=== PATIENT | female | born 1975 | race Caucasian/White ===

== ENCOUNTER 2019-09-22 23:17 | Emergency (ER) | payer BC, SELFPAY ==
--- NOTE | ~2019-09-22 | CT_ITS ---
EXAMINATION: CT brain wo con INDICATION: Head injury COMPARISON: None TECHNIQUE: Standard unenhanced head CT. The dose-length product (DLP) was 605.33 mGy-cm. The mA was a djusted according to patient size. Iterative reconstruction technique was employed. FINDINGS: A small hematoma is noted in the left frontal scalp. There is no intracranial hemorrhage, a cute infarction, or abnormal mass lesion. The ventricles are normal. There is no abnormal mass effect or midline shift. The morales-white matter differentiation is normal. The basal cisterns are patent. Th e orbits are normal. The paranasal sinuses, mastoids and calvarium are normal. IMPRESSION: 1. No acute intracranial abnormality. Reviewed, dictated and finalized at location A. ICIAN ALLERGIST IMMUNOLOGIST
--- NOTE | ~2019-09-22 | XR_ITS ---
EXAMINATION: XR forearm RT 2V INDICATION: Pain after fall TECHNIQUE: Two views of the right forearm are obtained. COMPARISON: None available FINDINGS: There is no acute fracture, dislocation, or subluxation. Mild deformity of the distal ulna and proximal radius are suggestive of prior fracture. The bones, soft tissues, and joint spaces other estrada normal. IMPRESSION: 1. No acute osseous abnormality. Reviewed, dictated and finalized at location A. CONTROL PRODUCT LIABILITY DIRECTOR
--- NOTE | ~2019-09-22 | XR_ITS ---
EXAMINATION: XR elbow RT min 3V INDICATION: Right elbow pain TECHNIQUE: Four views of the right elbow were obtained. COMPARISON: None available FINDINGS: There is a small triangular heterotopic ossification projecting between the radial head and ulna on the oblique views. There is no elbow joint effusion. Bone alignment is normal. IMPRESSION: 1. Heterotopic ossification in the elbow joint without joint effusion or other findings to suggest ac upper mattaponi fracture. Finding could reflect prior trauma or degenerative change. Acute fracture considered le ss likely. Reviewed, dictated and finalized at location A. ERY RN IMPRESSION: 1. Heterotopic ossification in the elbow joint without joint effusion or other findings to suggest acute fracture. Finding could reflect prior trauma or degen erative change. Acute fracture considered less likely.
--- NOTE | ~2019-09-22 | XR_ITS ---
EXAMINATION: XR elbow LT min 3V DATE: 09/22/2019 23:46 INDICATION: Left elbow pain after fall TECHNIQUE: Anteroposterior, two oblique and lateral views of the left elbow were obtained. COMPARISON: 07/10/2014 FINDINGS: Alignment is normal. No fracture or joint effusion. Joint spaces are normal. Soft tissues a re unremarkable. IMPRESSION: 1. No acute osseous abnormality. Reviewed, dictated and finalized at location A. ENGINE OPERATOR
--- NOTE | ~2019-09-22 | XR_ITS ---
EXAMINATION: XR chest 2V DATE: 09/22/2019 23:46 INDICATION: Pain after fall TECHNIQUE: PA and lateral views of the chest are obtained. COMPARISON: None available FINDINGS: The lungs are free of acute opacities. There is no pleural effusion or pneumothorax. The ca rdiomediastinal silhouette is normal. There is mild thoracic spondylosis. IMPRESSION: 1. No acute cardiopulmonary abnormality. Reviewed, dictated and finalized at location A. TH INFORMATION MANAGEMENT DIRECTOR
[2019-09-22 23:18] VITALS: BP 161/62; PULSE 82; RESP 20; TEMP 36.2; O2SAT 100
--- NOTE | 2019-09-22 23:29 | ED.FALL ---
HPI - Fall General Chief Complaint: Fall Stated Complaint: FELL DOWN STAIRS Time Seen by Provider: 09/22/19 23:28 Source: patient Mode of arrival: ambulatory Limitations: no limitations History of Present Illness HPI Narrative: A 43 y/o female presents to the ED with c/o fall. Pt states that tonight she was cleaning her house when she tripped and fell down 12-15 stairs. She reports frontal HI, left elbow pain, and right forearm pain, but denies LOC and back pain. Pt is not currently on blood thinners. She has no other complaints at this time. complaint: fall Onset (ago): hour(s) (Today) Fall from: down stairs (#) (12-15) Place fall occurred: home Loss of consciousness: none Context: tripped/slipped Location of injury: head (Frontal) Location of injury - extremities: Left: elbow and Right: forearm Associated symptoms (after fall): other (Frontal HI, left elbow pain, right forearm pain) Related Data Home Medications Medication Instructions Recorded Confirmed fluoxetine 20 mg capsule 20 mg PO DAILY 06/16/19 Allergies Allergy/AdvReac Type Severity Reaction Status Date / Time No Known Allergies Allergy Verified 09/22/19 23:23 Review of Systems Review of Systems: All systems reviewed & are unremarkable except as noted in HPI and below Musculoskeletal: Musculoskeletal: Denies back pain and Reports arthralgias (Left elbow, right forearm) Neurologic: Reports other (Reports: frontal HI; Denies: LOC) [facility] Past Medical History Medical History Essential (primary) hypertension Fatigue Hyperlipidemia Sleep apnea in adult Surgical History Surgical History No pertinent past surgical history Family History Family History Sibling Patient's sister is in good health Father No family history of cardiovascular disease, Onset Age: 44 Patient's father is Mother Hypertension Family history of malignant neoplasm of breast in first degree relative Social History Social History Smoking status: Never smoker Second hand tobacco smoke exposure: No Smoking end date: 08/02/06 Alcohol intake: never Gender identity (if verbalized by the patient): Female Exam Narrative: Exam Narrative: APPEARANCE: Well appearing, no apparent distress, well-nourished. HEENT: normocephalic mild swelling ecchymosis over left superior forehead. TMs clear bilaterally. Oral mucosa moist. No tenderness over bilateral zygomatic arch. Full range of motion of jaw without pain. EYES: PERRL NECK: Supple. No midline tenderness to palpation. Full range of motion without pain RESPIRATORY: No respiratory distress. Clear to auscultation bilaterally CARDIOVASCULAR: Regular rate and rhythm without murmurs rubs or gallops. ABDOMINAL: Soft, nontender, nondistended, no rebound or guarding MUSCULOSKELETAl: Moves all extremities. No tenderness to palpation of bilateral lower extremities. No clubbing cyanosis or edema right upper extremity tender over the lateral forearm with mild swelling and ecchymosis, no tenderness over the elbow or wrist with full range of motion of both without pain, tender palpation over the left lateral elbow, no swelling or ecchymosis, full range of motion left elbow without pain, no tenderness of the bilateral wrists or shoulders, bilateral radial pulse 2+, neurovascular intact Back: No midline thoracic or lumbar tenderness to palpation NEURO: Awake and alert ?3. Follows commands. Speech normal. No focal deficits. SKIN:: Warm, dry. Normal Color Course Course Emergency Course: Discussed with patient results of workup and diagnosis. Discussed need for follow-up with primary care, proper use of medication, and reasons to return to the emergency department. Patient understands and agrees to current treatment plan Vital Signs Vit
[2019-09-23] MEDS: ACETAMINOPHEN 500 MG TABLET 1000 MG PO (00:10)
[2019-09-23 01:18] VITALS: BP 149/61; PULSE 81; RESP 18; O2SAT 97
== END 2019-09-23 01:20 | disposition home or self-care (01) ==
PROVIDERS: Emergency Provider Emergency Medicine; PCP Internal Medicine
DX: S00.83XA Contusion of other part of head, initial encounter (principal); S50.11XA Contusion of right forearm, initial encounter; S50.02XA Contusion of left elbow, initial encounter; I10 Essential (primary) hypertension; E78.5 Hyperlipidemia, unspecified; R06.81 Apnea, not elsewhere classified; W10.9XXA Fall (on) (from) unspecified stairs and steps, initial encounter
CPT/HCPCS: 70450; 71046; 73080; 73090; 99284; A9270; L0140

== ENCOUNTER 2020-08-23 14:47 | Outpatient (CLI) | payer BC, SELFPAY ==
--- NOTE | 2020-08-23 14:50 | ECG_ITS ---
Measurements Intervals [place] Rate: 66 P: 33 VA: 170 QRS: 0 QRSD: 110 T: 50 QT: 388 QTc: 409 Interpretive Statements SINUS RHYTHM DELAYED PRECORDIAL R/S TRANSITION MINIMAL Q WAVES- HIGH LATERAL LEADS BORDERLINE ECG Electronically Signed On 08-23-2020 15:00:55 FAMILY PROGRAM SPECIALIST by Nirmal Joseph D.O.
== END 2020-08-23 14:48 | disposition home or self-care (01) ==
LOC: ANHSURGERY 14:50
PROVIDERS: Family Provider Internal Medicine; PCP Internal Medicine; Visit Provider Obstetrics & Gynecology
DX: Z01.810 Encounter for preprocedural cardiovascular examination (principal); I10 Essential (primary) hypertension
CPT/HCPCS: 93005

== ENCOUNTER 2020-08-24 01:15 | Outpatient (CLI) | payer BC, SELFPAY ==
[2020-08-25 00:20] LABS: SARS-CoV-2 RNA PCR Negative
== END 2020-08-24 01:16 | disposition home or self-care (01) ==
LOC: ANHCOVIDDT 01:15
PROVIDERS: Family Provider Internal Medicine; PCP Internal Medicine; Visit Provider Obstetrics & Gynecology
DX: Z01.812 Encounter for preprocedural laboratory examination (principal); Z20.822 Contact with and (suspected) exposure to COVID-19
CPT/HCPCS: C9803; U0003; U0005

== ENCOUNTER 2020-08-28 00:55 | Day surgery (SDC) | payer BC, SELFPAY ==
[2020-08-21 16:10] VITALS: BMI 53.8
--- NOTE | 2020-08-27 13:19 | WPDANESEPPF ---
Anes - Initial Pre Proc Eval Procedure: Operation Date: 08/28/20 14:30 Proposed Procedures p Hysteroscopy Dilation and Curettage - Chau Ordonez MD Date/Time: 08/27/20 13:19 Surgeon: Chau Ordonez MD Pre Op Diagnosis: Irreg. bleeding, Enlarged Uterus Patient Data Age: 44 Gender: F Height: 1.63 m Weight: 142.43 kg Allergies Allergy/AdvReac Type Severity Reaction Status Date / Time No Known Allergies Allergy Verified 08/28/20 12:09 Home Medications Medication Instructions Recorded Confirmed Type cyclobenzaprine 10 mg tablet 10 mg PO .QHS PRN #30 tablet 06/20/19 08/28/20 Rx fluoxetine 20 mg capsule 20 mg PO DAILY #90 cap 10/03/19 08/28/20 Rx lisinopril 20 1 tablet PO DAILY #90 tablet 10/03/19 08/21/20 Rx mg-hydrochlorothiazide 12.5 mg tablet Patient hx anesthesia problems: none Family hx anesthesia problems: none PMFSH Past Medical History Medical History Essential (primary) hypertension Fatigue Hyperlipidemia Sleep apnea in adult Surgical History Surgical History History of section No pertinent past surgical history Family History Family History Sibling Patient's sister is in good health Father No family history of cardiovascular disease, Onset Age: 44 Patient's father is Mother Hypertension Family history of malignant neoplasm of breast in first degree relative Social History Social History Years smoked: 15 Smoking status: Former smoker Second hand tobacco smoke exposure: No Smoking end date: 08/02/06 Alcohol intake: never Last use: 1999 Living arrangements: with family Gender identity (if verbalized by the patient): Female Spiritual care concerns: No Anes - Eval Final PreProcedure Day of Procedure 08/27/20 13:19 Patient weight: super morbidly obese Heart: regular rate and rhythm Lungs: clear to auscultation and normal air movement Airway: Mallampati scale class II Neurological: alert and oriented Last oral intake: >/= 8 hours ASA classification: III Emergent: no Anesthetic plan: proceed Anesthesia type and monitoring: general GIVS and LMA and standard monitoring Informed Consent: The patient's anesthetic plan and its attendant risks and benefits were discussed with the patient/family/POA. Questions were solicited and answers provided to the satisfaction of the patient/family/POA.
[2020-08-28] VITALS (8 sets, daily range): BP systolic 146–178; BP diastolic 67–86; PULSE 63–78; RESP 15–19; TEMP 36.2–36.6; O2SAT 97–100
--- NOTE | 2020-08-28 12:06 | PM.IMHP ---
H&P: HPI History of Present Illness Date/Time: 08/28/20 12:06 Chief Complaint: Bleeding Narrative: 44 y/o with a heavy episode of vaginal bleeding in the setting of a thickened endometrial complex on ultrasound. Ultrasound showed a heterogeneous endometrial complex measuring 8.6 mm in thickness. There are at least 3 myomata, the largest measuring 5.4 cm in greatest dimension. Review of Systems Review of Systems: All systems reviewed & are unremarkable except as noted in HPI and below PMFSH Past Medical History Medical History Essential (primary) hypertension Fatigue Hyperlipidemia Sleep apnea in adult Surgical History Surgical History History of section No pertinent past surgical history Family History Family History Sibling Patient's sister is in good health Father No family history of cardiovascular disease, Onset Age: 44 Patient's father is Mother Hypertension Family history of malignant neoplasm of breast in first degree relative Social History Social History Years smoked: 15 Smoking status: Former smoker Second hand tobacco smoke exposure: No Smoking end date: 08/02/06 Alcohol intake: never Last use: 1999 Living arrangements: with family Gender identity (if verbalized by the patient): Female Spiritual care concerns: No Meds Home Medications and Allergies Home Medications Medication Instructions Recorded Confirmed Type cyclobenzaprine 10 mg tablet 10 mg PO .QHS PRN #30 tablet 06/20/19 08/21/20 Rx fluoxetine 20 mg capsule 20 mg PO DAILY #90 cap 10/03/19 08/21/20 Rx lisinopril 20 1 tablet PO DAILY #90 tablet 10/03/19 08/21/20 Rx mg-hydrochlorothiazide 12.5 mg tablet Allergies Allergy/AdvReac Type Severity Reaction Status Date / Time No Known Allergies Allergy Verified 08/28/20 12:09 Exam Const: Orientation/consciousness: patient oriented x3 Other: Well-developed, well-nourished female in no acute distress. Neck: Thyroid: thyroid normal Lymphatic: no lymphadenopathy noted (in neck, axilla or inguinal nodes) Resp: Effort & Inspection: normal respiratory effort Auscultation: clear to auscultation bilaterally Cardio: Rate: regular rate Rhythm: regular rhythm Heart sounds: S1 normal heart sound present and S2 normal heart sound present GI: Other: ABD: Soft, nontender, nondistended. No guarding or rebound tenderness. No hepatosplenomegaly. : General: Yes no CVA tenderness Other: External genitalia: normal female hair distribution, without lesion. Urethral meatus: no lesion, non prolapsed. Bladder: no mass, nontender Vagina: Moderate blood noted. Cervix: no lesion or discharge. Uterus: small, anteverted, freely mobile, nontender Adnexa: no mass or tenderness. Anus/perineum: no lesions, nontender Back/Spine/Pelvis: Back: no CVA tenderness Skin: General skin exam: normal color and no rashes or lesions noted Neuro: General: patient oriented x3 Extrem: Other: Extremities: nontender with no edema Psych: Mental Status: mental status grossly normal Affect: normal affect Assessment and Plan Assessment and plan (1) Episode of heavy vaginal bleeding: Code(s): N93.9 - Abnormal uterine and vaginal bleeding, unspecified Status: Acute Assessment and Plan: A: Heavy episode of vaginal bleeding in the setting of a thickened endometrial complex on ultrasound P: Offered hysteroscopy with dilation and curettage. She understands risks of surgery to include risks of anesthesia, risks of pain, infection, bleeding, blood products, thromboembolic phenomena and damage to adjacent structures such as bowel, bladder, ureters, blood vessels and nerves. She understands all these risks and elects t
--- NOTE | 2020-08-28 12:12 | WPDHPUPDATE1 ---
History and Physical Update Update Date/Time: 08/28/20 12:12 History and Physical has been reviewed, including an updated exam of the patient. There are NO changes in the patient's condition. Risks, benefits, and alternatives have been discussed and questions answered. Patient agrees to proceed with procedure.
[2020-08-28] MEDS: LACTATED RINGERS 1,000 ML 30 ML IV CONT ×2 (12:34→14:13)
[2020-08-28] MEDS: ACETAMINOPHEN 500 MG TABLET 1000 MG PO (12:35)
[2020-08-28] MEDS: LIDOCAINE HCL 1% LOCAL INJ 10 ML VIAL 20 ML INFILTRATE (13:26)
[2020-08-28] MEDS: KETOROLAC 30 MG/ML VIAL (*BKC) IV PUSH (13:45)
--- NOTE | 2020-08-28 13:55 | PM.PROC ---
Procedure Note - Detailed Date of procedure: 08/28/20 Pre-op diagnosis: Irreg. bleeding, Enlarged Uterus Heavy episode of vaginal bleeding Abnormal pelvic ultrasound Post-op diagnosis: other (Heavy episode of vaginal bleeding, endometrial mass) Procedure performed: Hysteroscopy Dilation and sharp curettage Description of procedure: The patient was taken to the operating room where she was prepared and draped in the usual sterile fashion in the dorsal lithotomy position. The bladder was drained with a red rubber catheter. A sterile speculum was placed into the vagina. The anterior lip of the cervix was grasped with single-tooth tenaculum. Ten mL of 1% lidocaine was administered in a paracervical block. The cervix was then gently dilated using Hegar dilators until an 8 mm dilator could be passed. Hysteroscopy was performed using sterile saline as a distention medium. Findings are as noted above. A polyp forceps was advanced and polypectomy performed. Sharp curettage was then performed, and endometrial curettings were collected on a Telfa pad and passed off to be sent to pathology. Of note, the procedure was technically difficult, as the endometrial cavity was long and the hilts of the instruments were abutting the speculum. Hemostasis was excellent. Sponge, lap, needle and instrument counts were correct. The patient was awakened and taken to the recovery room in stable condition. I was present and scrubbed through the entire procedure. Implants: None Anesthesia: MAC and local (paracervical block) Surgeon: Chau Ordonez MD Estimated blood loss (mL): 10 Drains: No Packing: No Pathology: yes (endometrial curettings) Complications: None Condition: stable Disposition: PACU Findings: The vaginal canal was long. The endometrial cavity was long as well, causing some technical difficulty as above. Both tubal ostia were seen. A mass likely to represent a polyp was noted at the right uterine fundus.
[2020-08-28] MEDS: fentaNYL CITRATE INJ (*CRX) 100 MCG/2 ML VIAL 25 MCG IV PUSH ×4 (14:02→14:20)
== END 2020-08-28 15:28 | disposition home or self-care (01) ==
PROVIDERS: Family Provider Internal Medicine; PCP Internal Medicine; Visit Provider Obstetrics & Gynecology
PROC: 0U5B8ZZ Destruction of Endometrium, Via Natural or Artificial Opening Endoscopic (ICD-10-PCS; CPT 58563; principal; 2020-08-28 13:00)
DX: N93.9 Abnormal uterine and vaginal bleeding, unspecified (principal); N84.0 Polyp of corpus uteri; I10 Essential (primary) hypertension; E78.5 Hyperlipidemia, unspecified; G47.30 Sleep apnea, unspecified; Z87.891 Personal history of nicotine dependence; E66.01 Morbid (severe) obesity due to excess calories; Z68.43 Body mass index [BMI] 50.0-59.9, adult
CPT/HCPCS: 58558; 88305; A9270; J1885; J2250; J2405; J2704; J3010; J7030; J7120

== ENCOUNTER 2022-07-11 08:29 | Outpatient (CLI) | payer BC, SELFPAY ==
[2022-07-11 09:09] LABS: Basophils Absolute Auto 0.1 K/mm3 (0.0-0.1); Basophils Percent Auto 0.8 % (0.2-1.2); Eosinophils Absolute Auto 0.1 K/mm3 (0-0.3); Eosinophils Percent Auto 1.5 % (0-4.4); Hematocrit 40.3 % (37.0-47.0); Hemoglobin 12.9 g/dL (12.0-15.0); Immature Granulocyte Absolute 0.04 K/mm3 (0.00-0.031); Immature Granulocyte Percent A 0.7 % (0-0.5); Lymphocytes Absolute Auto 1.41 K/mm3 (0.9-3.2); Mean Corpuscular Hemoglobin 26.6 pg (26-34); Mean Corpuscular Volume 83.1 fl (80-100); Mean Platelet Volume 9.9 fl (7.4-10.4); Monocytes Absolute Auto 0.6 K/mm3 (0.1-0.6); Monocytes Percent Auto 9.5 % (2.6-8.5); Neutrophils Percent Auto 64.5 % (45.5-73.1); Platelet Count Result 260 k/mm3 (150-375); Red Blood Count 4.85 M/mm3 (4.2-5.4); Red Cell Distribution Width 16.1 % (11.5-14.5); White Blood Count 6.1 K/mm3 (4.5-10.0)
[2022-07-11 09:22] LABS: Alanine Aminotransferase 20 U/L (6-35); Albumin Level 4.5 g/dL (3.5-5.1); Alkaline Phosphatase 67 U/L (38-126); Anion Gap 8 mmol/L (8-16); Aspartate Amino Transferase 18 U/L (14-36); Bilirubin,Total 0.7 mg/dL (0.2-1.3); Blood Urea Nitrogen 15 mg/dL (7-17); Calcium 8.9 mg/dL (8.4-10.2); Carbon Dioxide 24 mmol/L (22-30); Chloride 105 mmol/L (98-107); Cholesterol 192 mg/dL (0-200); Estimated Glomerular Filt Rate > 60; Glucose 110 mg/dL (65-110); HDL Direct 52 mg/dL; Potassium 4.1 mmol/L (3.4-5.0); Sodium 137 mmol/L (137-145); Triglycerides 126 mg/dL (<150)
[2022-07-11 09:33] LABS: LDL Cholesterol Direct 96 mg/dL
[2022-07-11 10:54] LABS: Folic Acid 13.5 ng/mL (2.76->20)
== END 2022-07-11 08:30 | disposition home or self-care (01) ==
LOC: ANHLAB 08:30
PROVIDERS: PCP Internal Medicine; Visit Provider Internal Medicine
DX: R53.83 Other fatigue (principal); I10 Essential (primary) hypertension; E78.5 Hyperlipidemia, unspecified
CPT/HCPCS: 36415; 80053; 80061; 82607; 82746; 84443; 85025

== ENCOUNTER 2022-10-05 09:44 | Outpatient (CLI) | payer BC, SELFPAY ==
--- NOTE | 2022-10-05 11:00 | NEURO_ITS ---
Impression: # Complains of numbness of hands. # Bilateral moderate Carpal Tunnel Syndrome, left more than right. # No ulnar neuropathy. # Normal needle/EMG exam. Motor Nerve Conduction Upper Extremities Median Nerve Conduction Velocity (m/sec) Terminal Latency (msec) Response Voltage(mV) Elbow-Wrist Wrist Elbow Wrist Right 58 5.9 2 3 Left 57 6.6 2 3 Ulnar Nerve Conduction Velocity (m/sec) Terminal Latency (msec) Response Voltage(mV) Above Elbow Below Elbow Wrist Above Elbow Below Elbow Wrist Right 55 2.6 4 7 Left 56 2.3 6 9 F-Wave Latency Median (ms) Ulnar (ms) Right 31.8 28.1 Left 31.2 28.3 Sensory Nerve Conduction Upper Extremities Median Nerve Stimulation Terminal Latency (msec) Wrist/Digit Response Voltage (uV) Wrist Right 5.6/5.8 20/13 Left 5.0/5.2 26/16 Ulnar Nerve Stimulation Terminal Latency (msec) Wrist/Digit Response Voltage (uV) Wrist Right 2.3 60 Left 2.3 52 Radial Nerve Terminal Latency (msec) Response Voltage(mV) Right 2.3 17 Left 2.0 19 Left Right Muscles Examined Fibrillation Fasciculation Scarcity Voltage Duration Left Right Left Right Left Right Left Right Left Right Deltoid Biceps X X Brachioradialis Triceps X X Pronator Teres X X Ext Indicis X X Ext Digitorum X X Abd Poll Brev X X 1st Dorsal Interosseus Paraspinals MTDD
== END 2022-10-05 09:45 | disposition home or self-care (01) ==
LOC: ANHNEURO 09:44
PROVIDERS: PCP Internal Medicine; Visit Provider Internal Medicine
DX: R20.0 Anesthesia of skin (principal); G56.03 Carpal tunnel syndrome, bilateral upper limbs
CPT/HCPCS: 95886; 95911

== ENCOUNTER 2022-10-06 09:40 | Outpatient (CLI) | payer BC, SELFPAY ==
--- NOTE | 2022-10-29 21:46 | WPDSLEEPSTUD ---
Sleep Study Date of Study: 10/06/22 Ordering Provider: Dilip Hayden DO Interpreting Physician: Evie Israel MD Sleep Study Type: Polysomnogram Height: 1.63 m Weight: 138.799 kg Body Mass Index: 52.5 Neck Circumference (inches): 19.5 Isabella: 3 Reason for Sleep Study Obstructive sleep apnea diagnosed 2013, has been on APAP 6-12 cm, machine is old and needs to be replaced. This was ordered as a split night however she did nto meet criteria and this was conducted as a basic study. Sleep History Freda Silva is a 47-year-old woman who used PAP after sleep study about 10 years ago. She has been on the same settings ever since. She frequently awakens from sleep feeling short of breath. She constantly snores loudly enough that others complain. She always has trouble sleeping with a cold. She frequently wakes up gasping for breath at night. She always has breathing problems at night observed by others. She does not sweat excessively at night or notice her heart pounding or beating irregularly at night. She rarely falls asleep during the day. She never falls asleep involuntarily or while driving. She does not have loss of muscle tone with strong emotion. She rarely has daytime difficulties due to excessive sleepiness. She does not feel paralyzed on waking or falling asleep. She does not have vivid dreamlike scenes on waking or falling asleep. She does not feel afraid to go to sleep. She rarely has nightmares. She rarely remembers her dreams. She occasionally has racing thoughts. She rarely feels sad or depressed. She rarely has anxiety. She rarely has muscular tension. She rarely notices parts of her body jerking. She does not kick at night. She does not have crawling or aching feelings in her legs or any kind of leg pain at night. She does not have morning jaw pain. She rarely grinds her teeth during sleep. She is not bothered by pain during the day or awakened by pain during the night. She rarely wakes up feeling stiff in the morning with sore achy muscles or pain in the neck and spine. She has headaches. Normal bedtime is 10:00 p.m., taking 15 minutes to fall asleep, typically waking 4-5 times during the night for few minutes. She may try to return to sleep but if not possible she will read something on her telephone. She wakes the morning between 5 and 6:00 a.m.. She estimates 7 hours of sleep at night. Habits: Quit tobacco 15 years ago. Caffeine 6 servings per day. No alcohol or recreational substances. [facility] Past Medical History Medical History Essential (primary) hypertension Fatigue Hyperlipidemia Sleep apnea in adult Surgical History Surgical History History of section No pertinent past surgical history Family History Family History Sibling Patient's sister is in good health Father Patient's father is Heart disease Hypertension Mother Hypertension Family history of malignant neoplasm of breast in first degree relative Depression Social History Social History Years smoked: 15 Smoking status: Former smoker Second hand tobacco smoke exposure: No Smoking end date: 08/02/06 Alcohol intake: never Substance use: unknown Last use: 1999 Lack of Transportation: No Lack of Food: Never True Current Housing: I Have Housing Concerned About Future Housing: No Difficulty Paying Gas/Electric Bills: No Difficulty Paying for Meds: No Currently Unemployed: No Education: High School Diploma/GED Difficulty w/ Childcare or Family Care: No Living arrangements: with family Gender identity (if verbalized by the patient): Female Spiritual care concerns: No Medications Home Medications Medication Instr
[2022-10-30 11:46] VITALS: BMI 52.5
== END 2022-10-07 07:25 | disposition home or self-care (01) ==
LOC: ANHCSM 09:41
PROVIDERS: PCP Internal Medicine; Visit Provider Internal Medicine
DX: G47.10 Hypersomnia, unspecified (principal); R06.83 Snoring; I10 Essential (primary) hypertension; E78.5 Hyperlipidemia, unspecified; Z87.891 Personal history of nicotine dependence
CPT/HCPCS: 95810

== ENCOUNTER 2024-01-22 08:54 | Outpatient (CLI) | payer BC, SELFPAY ==
[2024-01-22 09:50] LABS: Basophils Absolute Auto 0.1 K/mm3 (0.0-0.1); Eosinophils Absolute Auto 0.1 K/mm3 (0-0.3); Eosinophils Percent Auto 2.9 % (0-4.4); Hematocrit 43.1 % (37.0-47.0); Hemoglobin 13.5 g/dL (12.0-15.0); Immature Granulocyte Absolute 0.02 K/mm3 (0.00-0.031); Immature Granulocyte Percent A 0.4 % (0-0.5); Lymphocytes Absolute Auto 1.21 K/mm3 (0.9-3.2); Lymphocytes Percent Auto 24.9 % (18.3-44.2); Mean Corpuscular HGB Conc 31.3 g/dl (32-36); Mean Corpuscular Hemoglobin 26.5 pg (26-34); Mean Corpuscular Volume 84.7 fl (80-100); Mean Platelet Volume 10.1 fl (7.4-10.4); Monocytes Absolute Auto 0.6 K/mm3 (0.1-0.6); Neutrophils Absolute Auto 2.9 K/mm3 (1.3-6.7); Neutrophils Percent Auto 58.8 % (45.5-73.1); Platelet Count Result 216 k/mm3 (150-375); Red Blood Count 5.09 M/mm3 (4.2-5.4); Red Cell Distribution Width 15.4 % (11.5-14.5); White Blood Count 4.9 K/mm3 (4.5-10.0)
[2024-01-22 09:52] LABS: Alanine Aminotransferase 21 U/L (6-35); Albumin Level 4.5 g/dL (3.5-5.1); Alkaline Phosphatase 61 U/L (38-126); Anion Gap 6 mmol/L (4-12); Aspartate Amino Transferase 19 U/L (14-36); Bilirubin,Total 0.5 mg/dL (0.2-1.3); Blood Urea Nitrogen 17 mg/dL (7-17); Calcium 9.2 mg/dL (8.4-10.2); Carbon Dioxide 26 mmol/L (22-30); Chloride 107 mmol/L (98-107); Cholesterol 193 mg/dL (0-200); Estimated Glomerular Filt Rate > 60; Glucose 114 mg/dL (65-110); HDL Direct 48 mg/dL; Potassium 4.1 mmol/L (3.4-5.0); Sodium 139 mmol/L (137-145); Triglycerides 192 mg/dL (<150)
[2024-01-22 10:03] LABS: LDL Cholesterol Direct 123 mg/dL
== END 2024-01-22 08:55 | disposition home or self-care (01) ==
LOC: ANHLAB 08:56
PROVIDERS: PCP Internal Medicine; Visit Provider Internal Medicine
DX: E78.5 Hyperlipidemia, unspecified (principal); I10 Essential (primary) hypertension; R53.83 Other fatigue
CPT/HCPCS: 36415; 80053; 80061; 83735; 84443; 85025

== ENCOUNTER 2024-10-07 09:01 | Outpatient (CLI) | payer BC, SELFPAY ==
--- OUTSIDE RECORDS SUMMARY | 2024-10-07 09:05 | XMS_ITS | Clinical Summary ---
Author Organization [facility] Address [facility] [place] [address] Care Team Providers Care Tin Flopper Name Role Phone Shakira Newton Primary Care Provider + [phone] Allergies No known active allergies Medications lisinopril 10 MG tablet Take 10 mg by mouth daily. Active hydroCHLOROthia zide 12.5 MG capsule Take 12.5 mg by mouth every morning. Active vitamin D2, ergocalciferol, (VITAMIN D, ERGOCALCIFEROL, ) 22058 UNITS capsuleIndicati ons:Vitamin D deficiency Take 1 capsule (50,000 Units total) by mouth every 7 days. Get lab work in 8-12 weeks. 8 capsule 08/06/2020 Active Active Problems No known active problems Family History Medical History Relation Comments Heart Disease Father Breast Cancer Mother Cancer Mother Hypertension Mother Relation Status Comments Father Mother Alive Social History Tobacco Use Types Packs/Day Years Used Date Smoking Tobacco: Former Cigarettes Q uit: 1999 Smokeless Tobacco: Never Alcohol Use Standard Drinks/Week Comments Yes 0 (1 standard drink = 0.6 oz pur e alcohol) socially PHQ-2 Answer Date Recorded PHQ-2 Score - If the patient scores above 3, please move on to questions 3-9 1 08/01/2020 Comments Unknown Sex and Gender Information Value Date Recorded Sex Assigned at Not on file Legal Sex Female 12:49 PM CARDIOTHORACIC ANESTHESIA TECHNICIAN Gender Identity Not on file Sexual Orientation Not on file Last Filed Vital Signs Vital Sign Reading Time Taken Comments Blood Pressure 132/80 08/01/2020 7:55 AM CARDIOTHORACIC ANESTHESIA TECHNICIAN Pulse 68 08/01/2020 7:55 AM CARDIOTHORACIC ANESTHESIA TECHNICIAN Temperature 36.3 C (97.4 F) 08/01/2020 7:55 AM CARDIOTHORACIC ANESTHESIA TECHNICIAN Respiratory Rate 18 08/01/2020 7:55 AM CARDIOTHORACIC ANESTHESIA TECHNICIAN Oxygen Saturation 98% 08/01/2020 7:55 AM CARDIOTHORACIC ANESTHESIA TECHNICIAN Inhaled Oxygen Concentration - - Weight 142.4 kg (314 lb) 08/01/2020 7:55 AM CARDIOTHORACIC ANESTHESIA TECHNICIAN Height 165.1 cm (5' 5 ) 08/01/2020 7:55 AM CARDIOTHORACIC ANESTHESIA TECHNICIAN Body Mass Index 52.25 08/01/2020 7:55 AM CARDIOTHORACIC ANESTHESIA TECHNICIAN Plan of Treatment Health Maintenance Due Date Last Done Comments Cervical Cancer Screening Pa p Smear (Age 30 to 64) Every 3 Years 1973 Colorectal Cancer Screening Colonoscopy (10 Years) 1973 Hepatitis C 10/02/1991 DTaP, Tdap and Td Vaccines ( 1 - Tdap) 1992 Hepatitis B Vaccines (1 of 3 - 19+ 3-dose series) 1992 Cervical Cancer Screening Pa p with HPV Testing (Age 30 to 64) Every 5 Years 10/02/2003 Cervical Cancer Screening with HPV 10/02/2003 Annual Physical 08/01/2021 08/01/2020 Mammogram Screening 08/09/2022 08/09/2020 Zoster Vaccines (1 of 2) 10/02/2023 COVID-19 Vaccine ( - 2023-2 5 season) 2024 Influenza Adult (#1) 2024 Meningococcal B Vaccine Aged Out No l onger eligible based on patient's age to complete this topic Meningococcal Vaccine Aged Out No christelle frances eligible based on patient's age to complete this topic Pneumococcal Vaccine: Pediat rics (0 to 5 Years) and At-Risk Patients (6 to 64 Years) Aged Out No longer eligi ble based on patient's age to complete this topic RSV Immunizations Under 20 Months Aged Out No longer eligible based on patient's age to complete this topic Procedures Procedure Name Priority Date/Time Associated Diagnosis Comments MG SCREENING W SOFI LARRY DIGI Routine 08/09/2020 8:27 AM CARDIOTHORACIC ANESTHESIA TECHNICIAN Breast cancer screening by mammogram from Last 3 Months or Most Recently Relevant to Health Maintenance Results * MG SCREENING W SOFI LARRY DIGI (08/09/2020 8:27 AM CARDIOTHORACIC ANESTHESIA TECHNICIAN) Anatomical Region Laterality Modality Breast Bilateral Mammography 08/15/2020 11:4 9 AM CARDIOTHORACIC ANESTHESIA TECHNICIAN Narrative 08/15/2020 11:49 AM CARDIOTHORACIC ANESTHESIA TECHNICIAN EXAMINATION: MG SCREENING W SOFI LARRY DIGI WITH TOMOSYNTHESIS AND COMPUTER-AIDED DETECTION (CAD) DATE: 08/09/2020 8:02 AM COMPARISON STUDIES: 03/14/2018, 02/24/2012, 10/14/2011. Prior exams received 08/15/2020. CLINICAL HISTORY: Screening . Family history breast CA: Mother FINDINGS: Bilateral CC, MLO, 2-D and 3-D acquisitions. Scattered residual fibroglandular parenchyma . Similar in appearance and distribution to the previous exams. No evidence of dominant mass, architectural distortion, skin thickening, nipple retraction or suspicious clusters of microcalcifications. Benign calcifications redemonstrated. CONCLUSION: 1. BI-RADS Category 2 - benign findings. Annual screening mammography recommended. 2. TISSUE TYPE: Category B - There are areas of scattered fibroglandular density. MQSA BI-RADS Categories: Category 0 - needs additional imaging evaluation. Category 1 - negative. Category 2 - benign findings. Category 3 - probably benign findings, but short interval follow-up is recommended. Category 4 - suspicious abnormality and biopsy should be considered though the lesion may well be benign. Category 5 - highly suggestive of malignancy and appropriate action should be taken. A) A negative report should not delay a biopsy if a dominant or clinically suspicious mass is present. B) Adenosis and dense breasts may obscure an underlying neoplasm. C) Study interpreted with computer aided detection. Voice recognition software utilized. Interpreted By: Lars Mcleod, 08/15/2020 11:49 AM Shakira LEO MAMMO Final Result from Last 3 Months or Most Recently Relevant to Health Maintenance Insurance [facility] Care Teams Tin Flopper Relationship Specialty [place] [address] [place] [address] PCP - General PHYSICIAN FURNITURE SALES ASSOCIATE 07/29/20
--- OUTSIDE RECORDS SUMMARY | 2024-10-07 09:05 | XMS_ITS | Encounter Summary ---
Author Organization [facility] Address [address] [address] Care Team Providers Care Director Of Midwifery/Staff Midwife Name Role Phone Dilip Hayden MD Primary Care Provider [phone] Encounter Details Date Type Department Care Team (Late st Contact Info) Description 2016 Orders Only [facility] ProviderJessie MD [address] [place], [place] [id number] Social History Tobacco Use Types Packs/Day Years Used Date Smoking Tobacco: Never Assessed Comments Unknown Sex and Gender Information Value Date Recorded Sex Assigned at Not on file Legal Sex Female 8:28 AM HEADMASTER/MISTRESS Gender Identity Female 12/08/2022 10:52 AM CDT Sexual Orientation Choose not to disclose 2022 10:52 AM CDT documented as of this encounter Plan of Treatment Not on file documented as of this encounter Procedures Procedure Name Priority Date/Time Associated Diagnosis Comments CARDIOLOGY REPORT 2016 documented in this encounter Results * CARDIOLOGY REPORT (2016) Anatomical Region Laterality Modality Other Narrative 2016 Ordered by an unspecified provider. Historical Provider [facility] CHERYLE HESTER Final Result documented in this encounter Visit Diagnoses Not on filedocumented in this encounter Care Teams Director Of Midwifery/Staff Midwife Relationship Specialty Start Date End Date Dilip Hayden MD [address] [place] [address] PCP - General 10/30/16 documented as of this encounter
--- OUTSIDE RECORDS SUMMARY | 2024-10-07 09:05 | XMS_ITS | Clinical Summary ---
Author Organization [facility] Address [address] [facility] [place] [address] Care Team Providers Care Human Resources Support Specialist Name Role Phone Unavailable Primary Care Provider Unavailabl e Source Comments [facility],non-owned Affiliates and Associated Physician Practices is amultiple site organization consisting of ambulatory clinics and hospital sitesin [place], [place], [place] and [place]. This disclosure is being madepursuant to the Care Everywhere program and may not contain all information available regarding this patient. Last updated 18.[facility] [employer] Allergies No known active allergies Medications * Be aware that medications may not be up to date on this document. Alwaysverify current medications with the patient. Medication Sig Dispensed Refills Start Date End Date Status HYDROCHLOROTHIAZIDE PO Ac tive lisinopril (PRINIVIL; ZESTRIL) 20 MG tablet Take 20 mg by mouth once daily Active FLUoxetine (PROZAC) 20 MG capsule Take 20 mg by mouth once daily Active lisinopril-hydroCHLOROt hiazide (PRINZIDE; ZESTORETIC) 20-12.5 MG tablet Active Active Problems No known active problems Social History Tobacco Use Types Packs/Day Years Used Date Smoking Tobacco: Former Smokeless Tobacco: Never Alcohol Use Standard Drinks/Week Comments Never 0 (1 standard drink = 0.6 oz pur e alcohol) Sex and Gender Information Value Date Recorded Sex Assigned at Not on file Gender Identity Not on file Sexual Orientation Not on file Last Filed Vital Signs Vital Sign Reading Time Taken Comments Blood Pressure - - Pulse 73 03/26/2021 2:02 PM CDT Temperature 36.8 C (98.3 F) 03/26/2021 2:02 PM CDT Respiratory Rate 16 03/26/2021 2:02 PM CDT Oxygen Saturation 98% 03/26/2021 2:02 PM CDT Inhaled Oxygen Concentration - - Weight 140.6 kg (310 lb) 03/26/2021 2:02 PM CDT Height 162.6 cm (5' 4 ) 03/26/2021 2:02 PM CDT Body Mass Index 53.21 03/26/2021 2:02 PM CDT Plan of Treatment Health Maintenance Due Date Last Done Comments COLOGUARD (AGES 45-75) - COL ON CA SCREENING 1973 COLON MONITORING 1973 COLONOSCOPY - COLON CA SCREENING 1973 CT COLONOGRAPHY - COLON CA SCREENING 1973 Colorectal Cancer Screening 1973 FIT - COLON CA SCREENING 1973 FLEX SIG - COLON CA SCREENING 1973 LIPID TESTING 1973 MAMMOGRAM 1973 PAP SMEAR 1973 HIV SCREENING 1988 HEPATITIS C SCREENING 09/27/1991 DTAP/TDAP/TD VACCINES (1 - Tdap) 1992 HEPATITIS B VACCINE (1 of 3 - 19+ 3-dose series) 1992 SCREENING FOR DIABETES 03/26/2021 PNEUMOCOCCAL VACCINE 50+ (1 of 1 - PCV) 10/02/2023 ZOSTER VACCINE (1 of 2) 10/02/2023 COVID-19 VACCINE (1 - 2023-2 5 season) 2024 INFLUENZA VACCINE (#1) 2024 DEPRESSION SCREENING 08/02/2024 HIB VACCINE Aged Out No longer eligi ble based on patient's age to complete this topic HPV VACCINE Aged Out No longer eligi ble based on patient's age to complete this topic MENINGOCOCCAL (Group B) VACCINE Aged Out No longer eligible based on patient's age to complete this topic MENINGOCOCCAL VACCINE Aged Out No christelle frances eligible based on patient's age to complete this topic PNEUMOCOCCAL VACCINE Aged Out No long er eligible based on patient's age to complete this topic
--- OUTSIDE RECORDS SUMMARY | 2024-10-07 09:05 | XMS_ITS | Patient Health Summary ---
Author Organization [facility] Address [address] [facility] [place] [address] Care Team Providers Care Technical Sales Associate Name Role Phone Unavailable Primary Care Provider Unavailabl e Note from [facility],non-owned Affiliates and Associated Physician Practices is amultiple site organization consisting of ambulatory clinics and hospital sitesin [place], [place], [place] and [place]. This disclosure is being madepursuant to the Care Everywhere program and may not contain all information available regarding this patient. Last updated 18.[facility] Allergies No known active allergies Medications * Be aware that medications may not be up to date on this document. Alwaysverify current medications with the patient. * HYDROCHLOROTHIAZIDE PO * lisinopril (PRINIVIL; ZESTRIL) 20 MG tablet Take 20 mg by mouth once daily * FLUoxetine (PROZAC) 20 MG capsule Take 20 mg by mouth once daily * lisinopril-hydroCHLOROthiazide (PRINZIDE; ZESTORETIC) 20-12.5 MG tablet Active Problems No known active problems Social [...]
--- OUTSIDE RECORDS SUMMARY | 2024-10-07 09:05 | XMS_ITS | Referral Summary ---
Author Organization [facility] Address [address] [place] [address] Care Team Providers Care Visual Education Director Name Role Phone Unavailable Primary Care Provider Unavailabl e Source Comments [facility],non-owned Affiliates and Associated Physician Practices is amultiple site organization consisting of ambulatory clinics and hospital sitesin [place], [place], [place] and [place]. This disclosure is being madepursuant to the Care Everywhere program and may not contain all information available regarding this patient. Last updated 18.[facility] [employer] Allergies No known active allergies Medications * [...] 03/26/2021 2:02 PM CDT Plan of Treatment Not on file
--- OUTSIDE RECORDS SUMMARY | 2024-10-07 09:05 | XMS_ITS | Clinical Summary ---
Author Organization [facility] Address [address] [place] [address] Care Team Providers Care Infantry Unit Leader Name Role Phone Dilip Hayden MD Primary Care Provider [phone]- [phone] Allergies No known active allergies Medications FLUoxetine (PROzac) 20 mg capsuleIndicati ons:depression Take 1 capsule (20 mg total) by mouth it technical architect before breakfast Active lisinopriL (PRINIVIL,ZESTR [place]) 40 mg tabletIndicatio ns:hypertension Take 1 tablet (40 mg total) by mouth daily before breakfast Active hydroCHLOROthia zide (HYDRODIURIL) 12.5 mg tabletIndicatio ns:hypertension Take 1 tablet (12.5 mg total) by mouth daily before breakfast Active Active Problems Problem Noted Date Diagnosed Date Left carpal tunnel syndrome 03/04/2023 Right carpal tunnel syndrome 12/15/2022 Surgical History Surgery Date Site/Laterality Comments SECTION 08/02/1996 - 08/01/1997 DILATION AND CURETTAGE OF UTERUS CARPAL TUNNEL RELEASE 01/30/2023 - 03/01/2023 Medical History Medical History Date Comments Hypertension Years Motion sickness Sleep apnea Family History Medical History Relation Name Comments Heart attack Father Kane Hypertension Father Kane Cancer Mother Yanet Depression Mother Yanet Hypertension Mother Yanet Anesthesia problems Neg Hx Relation Name Status Comments Father Kane Mother Yanet Social History Tobacco Use Types Packs/Day Years Used Date Smoking Tobacco: Former Cigarettes 1 10 1 999 - 2009 Smokeless Tobacco: Never Personal Safety Answer Date Recorded Have you ever been in or are you currently in a harmful physical or emotional relationship or is someone making you feel afraid or unsafe? Denies 03/11/2023 Comments Unknown Sex and Gender Information Value Date Recorded Sex Assigned at Not on file Legal Sex Female 8:28 AM SCALER Gender Identity Female 12/08/2022 10:52 AM CDT Sexual Orientation Choose not to disclose 2022 10:52 AM CDT Obstetrics History Last Filed Vital Signs Vital Sign Reading Time Taken Comments Blood Pressure 157/59 03/11/2023 3:00 PM CDT Pulse 69 03/11/2023 3:10 PM CDT Temperature 36.6 C (97.9 F) 03/11/2023 2:13 PM CDT Respiratory Rate 18 03/11/2023 3:10 PM CDT Oxygen Saturation 97% 03/11/2023 3:10 PM CDT Inhaled Oxygen Concentration - - Weight 142.9 kg (315 lb) 03/05/2023 9:00 AM CDT Height 162.6 cm (5' 4 ) 03/05/2023 9:00 AM CDT Body Mass Index 54.07 03/05/2023 9:00 AM CDT Plan of Treatment Health Maintenance Due Date Last Done Comments Breast Cancer Screening-Mammogram 1973 Cervical Cancer Screening 1973 Colon Cancer Screening-Colonoscopy 1973 Depression Screening 1973 Hepatitis C Screening 1973 DTaP/Tdap/Td Vaccine (1 - Tdap) 1984 Hepatitis B Screening 10/02/1991 Regular Well Visit/Exam 18-64 10/02/1991 Zoster Vaccine (1 of 2) 10/02/2023 Covid-19 Vaccine (4 - 2023-2 5 season) 2024 07/24/2021, 10/24/2020, 10/03/2020 Influenza Vaccine (#1) 2024 07/24/2021 Pneumococcal vaccine <65 Aged Out No longer eligible based on patient's age to complete this topic Insurance * Guarantor: Freda Dove Account Type Relation to Patient Date of Phone Billing Address Personal/Family Self 1975 [phone] (Work) [address] [place] [address] [facility] [employer] ID Care Teams Infantry Unit Leader Relationship Specialty Start Date End Date Dilip Hayden MD [address] [facility] [address] [place] [address] PCP - General 10/30/16
--- OUTSIDE RECORDS SUMMARY | 2024-10-07 09:05 | XMS_ITS | Referral Summary ---
Author Organization [facility] Address [address] [place] [address] Care Team Providers Care Station Jailer Name Role Phone Dilip Hayden MD Primary Care Provider +1- [phone] Allergies No known active allergies Medications FLUoxetine (PROzac) 20 mg capsuleIndicati ons:depression Take 1 capsule (20 mg total) by mouth commercial collections specialist before breakfast Active lisinopriL (PRINIVIL,ZESTR [place]) 40 mg tabletIndicatio ns:hypertension Take 1 tablet (40 mg total) by mouth daily before breakfast Active hydroCHLOROthia zide (HYDRODIURIL) 12.5 mg tabletIndicatio ns:hypertension Take 1 tablet (12.5 mg total) by mouth daily before breakfast Active Active Problems Problem Noted Date Diagnosed Date Left carpal tunnel syndrome 03/04/2023 Right carpal tunnel syndrome 12/15/2022 Social History Tobacco Use Types Packs/Day Years Used Date Smoking Tobacco: Former Cigarettes 1 10 1 999 - 2008 Smokeless Tobacco: Never Personal Safety Answer Date Recorded Have you ever been in or are you currently in a harmful physical or emotional relationship or is someone making you feel afraid or unsafe? Denies 03/11/2023 Comments Unknown Sex and Gender Information Value Date Recorded Sex Assigned at Not on file Legal Sex Female 8:28 AM WAREHOUSER Gender Identity Female 12/08/2022 10:52 AM CDT Sexual Orientation Choose not to disclose 2022 10:52 AM CDT Last Filed Vital Signs Vital Sign Reading [...] 03/05/2023 9:00 AM CDT Plan of Treatment Not on file [place] [place] Care Teams Station Jailer Relationship Specialty Start Date End Date Dilip Hayden MD [address] [facility] [address] [place] [address] PCP - General 10/30/16
--- OUTSIDE RECORDS SUMMARY | 2024-10-07 09:05 | XMS_ITS | Continuity of Care Document ---
Author Organization [facility] Address [address] [facility] [address] [place] [address] Phone Care Team Providers Care Cereal Supervisor Name Role Phone Chau Mancilla MD Unavailable [...] Provider Providers Copied on Encounter OFFICE CONSULTATION [facility], [address], [place], [address], tel:[phone] [facility] [place] Acute pain of right shoulder 6 Laurent Ritchie. [address], [place], [place], [id number] . tel:[phone] Referring Provider: [address], [address] . tel:[phone] Family History Family Member Type Diagnosis Age At Onset Sister Problem (finding) Alive and well Payers Payer name Insurance type Covered democrat ID Authoriza tion(s) No Information Social History [...]
[2024-10-07 09:58] LABS: Hematocrit 46.6 % (37.0-47.0); Hemoglobin 14.8 g/dL (12.0-15.0); Mean Corpuscular HGB Conc 31.8 g/dl (32-36); Mean Corpuscular Hemoglobin 26.5 pg (26-34); Mean Corpuscular Volume 83.5 fl (80-100); Platelet Count Result 241 k/mm3 (150-375); Red Blood Count 5.58 M/mm3 (4.2-5.4); Red Cell Distribution Width 15.4 % (11.5-14.5)
[2024-10-07 10:12] LABS: Alanine Aminotransferase 23 U/L (6-35); Albumin Level 4.9 g/dL (3.5-5.1); Alkaline Phosphatase 60 U/L (38-126); Anion Gap 12 mmol/L (4-12); Aspartate Amino Transferase 35 U/L (14-36); Bilirubin,Total 0.8 mg/dL (0.2-1.3); Blood Urea Nitrogen 14 mg/dL (7-17); Calcium 9.6 mg/dL (8.4-10.2); Carbon Dioxide 26 mmol/L (22-30); Chloride 101 mmol/L (98-107); Cholesterol 169 mg/dL (0-200); Estimated Glomerular Filt Rate > 60; Glucose 85 mg/dL (65-110); HDL Direct 48 mg/dL; Potassium 4.1 mmol/L (3.4-5.0); Sodium 139 mmol/L (137-145); Triglycerides 137 mg/dL (<150)
[2024-10-07 10:23] LABS: LDL Cholesterol Direct 79 mg/dL
[2024-10-07 10:43] LABS: Thyroid Stimulating Hormone 0.881 uIU/mL (0.465-4.680)
[2024-10-07 10:50] LABS: Free T4 Free Thyroxine 1.05 ng/dL (0.78-2.19)
== END 2024-10-07 09:02 | disposition home or self-care (01) ==
LOC: ANHLAB 09:01
PROVIDERS: PCP Family Medicine; Visit Provider Family Medicine
DX: E78.5 Hyperlipidemia, unspecified (principal); I10 Essential (primary) hypertension; E66.01 Morbid (severe) obesity due to excess calories; R53.83 Other fatigue; E03.9 Hypothyroidism, unspecified
CPT/HCPCS: 36415; 80053; 80061; 83036; 84439; 84443; 85027

== ENCOUNTER 2024-10-18 00:24 | Day surgery (SDC) | payer BC, SELFPAY ==
[2024-10-10 10:47] VITALS: BMI 52.4
--- OUTSIDE RECORDS SUMMARY | 2024-10-18 00:27 | XMS_ITS | Clinical Summary ---
Author Organization [facility] Address [facility] [place] [address] Care Team Providers Care Cone Runner Name Role Phone Shakira Newton Primary Care Provider + [phone] Allergies No known active allergies Medications lisinopril 10 MG tablet Take 10 mg by mouth daily. Active hydroCHLOROthia zide 12.5 MG capsule Take 12.5 mg by mouth every morning. Active vitamin D2, ergocalciferol, (VITAMIN D, ERGOCALCIFEROL, ) 50129 UNITS capsuleIndicati ons:Vitamin D deficiency Take 1 [...] on file Legal Sex Female 12:49 PM SALES SECRETARY Gender Identity Not on file Sexual Orientation Not on file Last Filed Vital Signs Vital Sign Reading Time Taken Comments Blood Pressure 132/80 08/01/2020 7:55 AM SALES SECRETARY Pulse 68 08/01/2020 7:55 AM SALES SECRETARY Temperature 36.3 C (97.4 F) 08/01/2020 7:55 AM SALES SECRETARY Respiratory Rate 18 08/01/2020 7:55 AM SALES SECRETARY Oxygen Saturation 98% 08/01/2020 7:55 AM SALES SECRETARY Inhaled Oxygen Concentration - - Weight 142.4 kg (314 lb) 08/01/2020 7:55 AM SALES SECRETARY Height 165.1 cm (5' 5 ) 08/01/2020 7:55 AM SALES SECRETARY Body Mass Index 52.25 08/01/2020 7:55 AM SALES SECRETARY Plan of Treatment Health Maintenance Due Date [...] SOFI LARRY DIGI Routine 08/09/2020 8:27 AM SALES SECRETARY Breast cancer screening by mammogram from Last 3 Months or Most Recently Relevant to Health Maintenance Results * MG SCREENING W SOFI LARRY DIGI (08/09/2020 8:27 AM SALES SECRETARY) Anatomical Region Laterality Modality Breast Bilateral Mammography 08/15/2020 11:4 9 AM SALES SECRETARY Narrative 08/15/2020 11:49 AM SALES SECRETARY EXAMINATION: MG SCREENING W SOFI LARRY DIGI [...] Most Recently Relevant to Health Maintenance Insurance [facility] Care Teams Cone Runner Relationship Specialty [place] [address] [place] [address] PCP - General PHYSICIAN PRECISION ASSEMBLER 07/29/20
--- OUTSIDE RECORDS SUMMARY | 2024-10-18 00:27 | XMS_ITS | Clinical Summary ---
Author Organization [facility] Address [address] [place] [address] Care Team Providers Care Freelance Displayer Name Role Phone Dilip Hayden MD Primary Care Provider +[phone]- [phone] Allergies No known active allergies Medications FLUoxetine (PROzac) 20 mg capsuleIndicati ons:depression Take 1 capsule (20 mg total) by mouth pecan picker before breakfast Active lisinopriL (PRINIVIL,ZESTR [place]) 40 [...] on file Legal Sex Female 8:28 AM SAFETY COUNSELOR Gender Identity Female 12/08/2022 10:52 AM CDT [...] of Phone Billing Address Personal/Family Self 1975 [phone] (Work) [address] [place] [address] [facility] [employer] [place] Care Teams Freelance Displayer Relationship Specialty Start Date End Date Dilip Hayden MD [address] [facility] [address] [place] [address] PCP - General 10/30/16
--- OUTSIDE RECORDS SUMMARY | 2024-10-18 00:27 | XMS_ITS | Continuity of Care Document ---
Author Organization [facility] Address [address] [facility] [facility] [address] [place] [address] Phone Care Team Providers Care Mason Foreman/Superintendant Name Role Phone Chau Mancilla MD Unavailable [...] Provider Providers Copied on Encounter OFFICE CONSULTATION [facility], [address] [facility] [address] [facility] [address], [place], [address], tel:[phone] [facility] [place] Acute pain of right shoulder 6 Laurent Ritchie. [address], [place], [place], [address] . tel:[phone] Referring Provider: Madison [address], [place], [address] . tel:[phone] Family History Family Member Type Diagnosis Age At Onset Sister Problem (finding) Alive and well Payers Payer name Insurance type Covered alliance party ID Authoriza tion(s) No Information Social History [...]
--- OUTSIDE RECORDS SUMMARY | 2024-10-18 00:27 | XMS_ITS | Clinical Summary ---
Author Organization [facility] Address [address] [facility] [place] [address] Care Team Providers Care Tractor Sweeper Operator Name Role Phone Unavailable Primary Care Provider Unavailabl e Source Comments [facility],non-owned Affiliates and Associated Physician Practices is amultiple site organization consisting of ambulatory clinics and hospital sitesin [place], [place], [place] and [place]. This disclosure is being madepursuant to the Care Everywhere program and may not contain all information available regarding this patient. Last updated 18.[facility] [employer] Allergies No known active allergies Medications * [...] to complete this topic MENINGOCOCCAL (Group B) VACC INE SHARED DECISION-MAKING Aged Out No longer eligibl e based on patient's age to complete this topic MENINGOCOCCAL GROUPS A/C/Y/W VACCINE Aged Out No longer eligible b ased on patient's age to complete this topic PNEUMOCOCCAL VACCINE Aged Out No long er eligible based on patient's age to complete this topic
--- OUTSIDE RECORDS SUMMARY | 2024-10-18 00:27 | XMS_ITS | Encounter Summary ---
Author Organization [facility] Address [address] [address] Care Team Providers Care Land Survey Technician Name Role Phone Dilip Hayden MD Primary Care Provider +1- [phone] Encounter Details Date Type Department Care Team (Late st Contact Info) Description 2016 [facility] ProviderJessie MD [address] [place], [place] [id number] Social History Tobacco Use Types Packs/Day Years Used Date Smoking Tobacco: Never Assessed Comments Unknown Sex and Gender Information Value Date Recorded Sex Assigned at Not on file Legal Sex Female 8:28 AM TREER Gender Identity Female 12/08/2022 10:52 AM CDT [...] on filedocumented in this encounter Care Teams Land Survey Technician Relationship Specialty Start Date End Date Dilip Hayden MD [address] [place] [address] PCP - General 10/30/16 documented as of this encounter
--- OUTSIDE RECORDS SUMMARY | 2024-10-18 00:27 | XMS_ITS | Referral Summary ---
Author Organization 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
[2024-10-18 09:33] VITALS: BP 172/86; PULSE 80; RESP 16; TEMP 36.3; O2SAT 100
[2024-10-18 09:38] LABS: BEDSIDEPREGUCG Negative (Negative)
[2024-10-18] MEDS: LACTATED RINGERS 1,000 ML 150 ML IV CONT (09:43)
--- NOTE | 2024-10-18 10:18 | WPDANESEPPF ---
Anes - Initial Pre Proc Eval Procedure: Operation Date: 10/18/24 10:45 Proposed Procedures p Screening Colonoscopy - Asher Boss MD Date/Time: 10/18/24 10:18 Surgeon: Asher Boss MD Pre Op Diagnosis: screening colon Patient Data Age: 49 Gender: F Height: 1.63 m Weight: 138.6 kg Last Vital Signs Temp 97.3 F L 10/18/24 09:33 Pulse 80 10/18/24 09:33 Resp 16 10/18/24 09:33 BP 172/86 H 10/18/24 09:33 Pulse Ox 100 10/18/24 09:33 O2 Del Method Room Air 10/18/24 09:33 Allergies Allergy/AdvReac Type Severity Reaction Status Date / Time No Known Allergies Allergy Verified 10/18/24 09:32 Home Medications ?Medication ?Instructions ?Recorded ?Confirmed ?Type cyclobenzaprine 10 mg tablet 10 mg PO .QHS PRN muscle spasm #30 06/08/24 10/18/24 Rx tabs fluoxetine 40 mg capsule 40 mg PO DAILY #90 caps 06/08/24 10/18/24 Rx hydrochlorothiazide 12.5 mg tablet 12.5 mg PO DAILY #90 tabs 06/08/24 10/18/24 Rx lisinopril 40 mg tablet 40 mg PO DAILY #90 tabs 06/08/24 10/18/24 Rx semaglutide (weight loss) 0.25 0.25 mg (0.5 mL) subcut WEEKLY #2 09/06/24 10/18/24 Rx mg/0.5 mL subcutaneous pen mL injector (Wegovy) Laboratory Tests 10/18/24 09:36 POC Urine HCG, Qual Negative (Negative) Patient hx anesthesia problems: none Family hx anesthesia problems: none Results Review: All pre-operative results and documents have been reviewed as part of the pre-operative evaluation. [facility] Past Medical History Medical History (Updated 10/08/24 @ 16:36 by Tony Mcmanus MD) Morbid obesity Fatigue Hyperlipidemia Sleep apnea in adult Essential (primary) hypertension Surgical History Surgical History History of section No pertinent past surgical history Family History Family History Sibling Patient's sister is in good health Father Heart disease Hypertension Mother Hypertension Family history of malignant neoplasm of breast in first degree relative Depression Breast cancer Social History Social History Years smoked: 15 Smoking status: Never smoker Second hand tobacco smoke exposure: No Smoking end date: 08/02/06 Alcohol intake: current Substance use: never Substance use type: does not use Last use: 2000 Do You Feel Safe in your Home?: Yes Lack of Transportation: No Lack of Food: Never True Current Housing: I Have Housing Concerned About Future Housing: No Difficulty Paying Gas/Electric Bills: No Difficulty Paying for Meds: No Currently Unemployed: No Education: High School Diploma/GED Difficulty w/ Childcare or Family Care: No Living arrangements: with family Additional living arrangements comments: with so Occupation/Education: occupation Additional occupation/education comments: IT Gender identity (if verbalized by the patient): Female Spiritual care concerns: No Anes - Eval Final PreProcedure Day of Procedure 10/18/24 10:18 Patient weight: super morbidly obese Heart: regular rate and rhythm Lungs: clear to auscultation Airway: Mallampati scale Neurological: alert and oriented Last oral intake: >/= 8 hours ASA classification: III Emergent: no Anesthetic plan: proceed Anesthesia type and monitoring: general GIVS and standard monitoring Results Review: All pre-operative results and documents have been reviewed as part of the pre-operative evaluation. Informed Consent: The patient's anesthetic plan and its attendant risks and benefits were discussed with the patient/family/POA. Questions were solicited and answers provided to the satisfaction of the patient/family/POA.
--- NOTE | 2024-10-18 10:36 | PM.IMHP ---
H&P: HPI History of Present Illness Date/Time: 10/18/24 10:36 Chief Complaint: Screening colonoscopy Narrative: This is the patient's first colonoscopy. There are no GI symptoms and there is no family history of colorectal cancer. Review of Systems Review of Systems: All systems reviewed & are unremarkable except as noted in HPI and below PMFSH Past Medical History Medical History (Updated 10/08/24 @ 16:36 by Tony Mcmanus MD) Morbid obesity Fatigue Hyperlipidemia Sleep apnea in adult Essential (primary) hypertension Surgical History Surgical History History of section No pertinent past surgical history Family History Family History Sibling Patient's sister is in good health Father Heart disease Hypertension Mother Hypertension Family history of malignant neoplasm of breast in first degree relative Depression Breast cancer Social History Social History Years smoked: 15 Smoking status: Never smoker Second hand tobacco smoke exposure: No Smoking end date: 08/02/06 Alcohol intake: current Substance use: never Substance use type: does not use Last use: 2000 Do You Feel Safe in your Home?: Yes Lack of Transportation: No Lack of Food: Never True Current Housing: I Have Housing Concerned About Future Housing: No Difficulty Paying Gas/Electric Bills: No Difficulty Paying for Meds: No Currently Unemployed: No Education: High School Diploma/GED Difficulty w/ Childcare or Family Care: No Living arrangements: with family Additional living arrangements comments: with so Occupation/Education: occupation Additional occupation/education comments: IT Gender identity (if verbalized by the patient): Female Spiritual care concerns: No Meds Home Medications and Allergies Home Medications ?Medication ?Instructions ?Recorded ?Confirmed ?Type cyclobenzaprine 10 mg tablet 10 mg PO .QHS PRN muscle spasm #30 06/08/24 10/18/24 Rx tabs fluoxetine 40 mg capsule 40 mg PO DAILY #90 caps 06/08/24 10/18/24 Rx hydrochlorothiazide 12.5 mg tablet 12.5 mg PO DAILY #90 tabs 06/08/24 10/18/24 Rx lisinopril 40 mg tablet 40 mg PO DAILY #90 tabs 06/08/24 10/18/24 Rx semaglutide (weight loss) 0.25 0.25 mg (0.5 mL) subcut WEEKLY #2 09/06/24 10/18/24 Rx mg/0.5 mL subcutaneous pen mL injector (Wego[employer]ndot) Allergies Allergy/AdvReac Type Severity Reaction Status Date / Time No Known Allergies Allergy Verified 10/18/24 09:32 Vital Signs Vital Signs - 24 hr 10/18/24 09:33 Temperature 97.3 F L Pulse Rate 80 Respiratory Rate 16 Blood Pressure 172/86 H Pulse Oximetry 100 Oxygen Delivery Room Air Exam Const: General: cooperative and healthy appearing Resp: Effort & Inspection: normal respiratory effort and able to speak in complete sentences Auscultation: clear to auscultation bilaterally Cardio: Rate: regular rate Rhythm: regular rhythm GI: Inspection: normal to inspection GI Palp: No No hepatosplenomegaly present Auscultation: normal bowel sounds Rectal Exam: deferred Skin: General skin exam: normal color Psych: Appearance: grossly normal Mental Status: mental status grossly normal Assessment and Plan Assessment and plan (1) Screening for colon cancer: Code(s): Z12.11 - Encounter for screening for malignant neoplasm of colon Status: Acute Assessment and Plan: The patient is deemed a good candidate for the procedure. Consent signed. Will proceed.
[2024-10-18] MEDS: SIMETHICONE ORAL SUSPENSION 20 MG/0.3 ML 30 ML BOTTLE 0.6 ML IRRIGATION (10:53)
[2024-10-18 11:05] VITALS: BP 148/76; PULSE 55; RESP 18; O2SAT 100
[2024-10-18 11:15] VITALS: BP 150/74; PULSE 55; RESP 18; O2SAT 100
[2024-10-18 11:25] VITALS: BP 158/72; PULSE 55; RESP 14; O2SAT 100
== END 2024-10-18 11:31 | disposition home or self-care (01) ==
PROVIDERS: Anesthesiology; PCP Family Medicine; Referring Provider Nurse Practitioner; Visit Provider Internal Medicine Gastroenterology
PROC: 0DJD8ZZ Inspection of Lower Intestinal Tract, Via Natural or Artificial Opening Endoscopic (ICD-10-PCS; CPT 45378; principal; 2024-10-18 10:45)
DX: Z12.11 Encounter for screening for malignant neoplasm of colon (principal); D12.3 Benign neoplasm of transverse colon; K64.8 Other hemorrhoids; E78.5 Hyperlipidemia, unspecified; I10 Essential (primary) hypertension; G47.30 Sleep apnea, unspecified; E66.01 Morbid (severe) obesity due to excess calories; Z68.43 Body mass index [BMI] 50.0-59.9, adult; Z79.85 Long-term (current) use of injectable non-insulin antidiabetic drugs; Z98.890 Other specified postprocedural states; Z80.3 Family history of malignant neoplasm of breast; Z82.49 Family history of ischemic heart disease and other diseases of the circulatory system
CPT/HCPCS: 45385; 88305; J2003; J2704; J7120

== ENCOUNTER 2025-03-06 09:32 | Outpatient (CLI) | payer BC, SELFPAY ==
--- OUTSIDE RECORDS SUMMARY | 2025-03-06 09:52 | XMS_ITS | Clinical Summary ---
Author Organization [facility] Address [address] [facility] [place] [address] Care Team Providers Care Commercial Collections Driver Name Role Phone Unavailable Primary Care Provider Unavailabl e Source Comments [facility],non-owned Affiliates and Associated Physician Practices is amultiple site organization consisting of ambulatory clinics and hospital sitesin [place], [place], [place] and [place]. This disclosure is being madepursuant to the Care Everywhere program and may not contain all information available regarding this patient. Last updated 18.[facility] Allergies No known active allergies Medications * Be aware that medications may not be up to date on this document. Alwaysverify current medications with the patient. 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 Gender Identity Not on file Sexual Orientation [...] 2:02 PM CDT Height 162.6 cm (5' 4) 03/26/2021 2:02 PM CDT Body Mass Index [...] SCREENING 1975 LIPID TESTING 1975 MAMMOGRAM 1973 HIV SCREENING 1988 HEPATITIS C SCREENING 09/27/1991 DTAP/TDAP/TD VACCINES (1 - Tdap) 1992 HEPATITIS B VACCINE (1 of 3 - 19+ 3-dose series) 1992 PAP SMEAR 1994 SCREENING FOR DIABETES 03/26/2021 PNEUMOCOCCAL VACCINE 50+ (1 of 1 - PCV) 10/02/2023 ZOSTER VACCINE (1 of 2) 10/02/2023 COVID-19 VACCINE (1 - 2023-2 5 season) 2024 DEPRESSION SCREENING 08/02/2024 INFLUENZA VACCINE (#1) 2025 HIB VACCINE Aged Out No longer eligi [...] patient's age to complete this topic Insurance [facility] SELF PAY NO INSURANCE Member Subscriber Plan / Payer (Ef fective for All Dates) Name:Maycol Dove Michael Member ID:Not on file Relation to Subscriber:Not on file Name:MAYCOL DOVE Subscriber ID:Not on file (Home) Address: [address] [place] [address] Payer ID:Not on file Group ID:Not on file Type:Self Pay Address: [place], [place]
--- OUTSIDE RECORDS SUMMARY | 2025-03-06 09:52 | XMS_ITS | Clinical Summary ---
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 Gender Identity Female 12/08/2022 10:52 AM CDT [...] 9:00 AM CDT Height 162.6 cm (5' 4) 03/05/2023 9:00 AM CDT Body Mass Index [...] 2024 07/24/2021, 10/24/2020, 10/03/2020 Influenza Vaccine (#1) 2025 07/24/2021 Pneumococcal vaccine <65 Aged Out No longer eligible based on patient's age to complete this topic Insurance * Guarantor: Freda Dove Account Type Relation to Patient Date of Phone Billing Address Personal/Family Self 1975 [phone] (Work) [address] [place] [address] [facility] [employer] [place] Care Teams Associate Civil Engineer Relationship Specialty Start Date End Date Dilip Hayden MD [address] [facility] [address] [place] [address] PCP - General 10/30/16
--- OUTSIDE RECORDS SUMMARY | 2025-03-06 09:52 | XMS_ITS | Encounter Summary ---
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
--- OUTSIDE RECORDS SUMMARY | 2025-03-06 09:52 | XMS_ITS | Clinical Summary ---
Author Organization [facility] Address [facility] [place] [address] Care Team Providers Care Mh Teacher Name Role Phone Shakira Newton Primary Care Provider + [phone] Allergies No known active allergies Medications lisinopril 10 MG tablet Take 10 mg by mouth daily. Active hydroCHLOROthia zide 12.5 MG capsule Take 12.5 mg by mouth every morning. Active vitamin D2, ergocalciferol, (VITAMIN D, ERGOCALCIFEROL, ) [address]3913 UNITS capsuleIndicati ons:Vitamin D deficiency Take 1 [...] on file Legal Sex Female 12:49 PM SAUSAGE LINKER Gender Identity Not on file Sexual Orientation Not on file Last Filed Vital Signs Vital Sign Reading Time Taken Comments Blood Pressure 132/80 08/01/2020 7:55 AM SAUSAGE LINKER Pulse 68 08/01/2020 7:55 AM SAUSAGE LINKER Temperature 36.3 C (97.4 F) 08/01/2020 7:55 AM SAUSAGE LINKER Respiratory Rate 18 08/01/2020 7:55 AM SAUSAGE LINKER Oxygen Saturation 98% 08/01/2020 7:55 AM SAUSAGE LINKER Inhaled Oxygen Concentration - - Weight 142.4 kg (314 lb) 08/01/2020 7:55 AM SAUSAGE LINKER Height 165.1 cm (5' 5) 08/01/2020 7:55 AM SAUSAGE LINKER Body Mass Index 52.25 08/01/2020 7:55 AM SAUSAGE LINKER Plan of Treatment Health Maintenance Due Date [...] Physical 08/01/2021 08/01/2020 Mammogram Screening 08/09/2022 08/09/2020 Pneumococcal Vaccine: 50+ Ye ars (1 of 1 - PCV) 10/02/2023 Zoster Vaccines (1 of 2) 10/02/2023 COVID-19 Vaccine ( - 2023-2 5 season) 2024 Meningococcal B Vaccine Aged Out No [...] SOFI LARRY DIGI Routine 08/09/2020 8:27 AM SAUSAGE LINKER Breast cancer screening by mammogram from Last 3 Months or Most Recently Relevant to Health Maintenance Results * MG SCREENING W SOFI LARRY DIGI (08/09/2020 8:27 AM SAUSAGE LINKER) Anatomical Region Laterality Modality Breast Bilateral Mammography 08/15/2020 11:4 9 AM SAUSAGE LINKER Narrative 08/15/2020 11:49 AM SAUSAGE LINKER EXAMINATION: MG SCREENING W SOFI LARRY DIGI [...] Most Recently Relevant to Health Maintenance Insurance [facility] Care Teams Mh Teacher Relationship Specialty [place] [address] [facility] [place] [address] PCP - General PHYSICIAN PIG MACHINE OPERATOR 07/29/20
--- OUTSIDE RECORDS SUMMARY | 2025-03-06 09:52 | XMS_ITS | Referral Summary ---
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
[2025-03-06 09:56] LABS: Hematocrit 40.7 % (37.0-47.0); Hemoglobin 12.9 g/dL (12.0-15.0); Immature Granulocyte Percent A 0.3 % (0-0.5); Lymphocytes Absolute Auto 1.21 K/mm3 (0.9-3.2); Mean Corpuscular HGB Conc 31.7 g/dl (32-36); Mean Corpuscular Hemoglobin 26.2 pg (26-34); Mean Corpuscular Volume 82.6 fl (80-100); Nucleated Red Blood Cells Absolute Auto 0.000 K/mm3 (0.0-0.012); Nucleated Red Blood Cells Perc 0.0 % (0.0-0.2); Platelet Count Result 227 k/mm3 (150-375); Red Blood Count 4.93 M/mm3 (4.2-5.4); White Blood Count 5.7 K/mm3 (4.5-10.0)
[2025-03-06 10:19] LABS: Alanine Aminotransferase 19 U/L (6-35); Albumin Level 4.4 g/dL (3.5-5.1); Alkaline Phosphatase 53 U/L (38-126); Anion Gap 8 mmol/L (4-12); Aspartate Amino Transferase 24 U/L (14-36); Bilirubin,Total 0.5 mg/dL (0.2-1.3); Blood Urea Nitrogen 12 mg/dL (7-17); Calcium 9.2 mg/dL (8.4-10.2); Carbon Dioxide 28 mmol/L (22-30); Chloride 102 mmol/L (98-107); Estimated Glomerular Filt Rate > 60; Glucose 87 mg/dL (65-110); Potassium 4.4 mmol/L (3.4-5.0); Sodium 138 mmol/L (137-145); Total Protein 7.6 g/dL (6.3-8.2)
[2025-03-06 11:13] LABS: Vitamin B12 439.0 pg/mL (239-931)
== END 2025-03-06 09:33 | disposition home or self-care (01) ==
LOC: ANHLAB 09:33
PROVIDERS: PCP Family Medicine; Visit Provider Family Medicine
DX: Z00.00 Encounter for general adult medical examination without abnormal findings (principal); M25.561 Pain in right knee; E78.5 Hyperlipidemia, unspecified; I10 Essential (primary) hypertension; R53.83 Other fatigue; G47.30 Sleep apnea, unspecified; E66.01 Morbid (severe) obesity due to excess calories
CPT/HCPCS: 36415; 73562; 80053; 82172; 82306; 82607; 85025

== ENCOUNTER 2025-04-09 13:46 | Outpatient (CLI) | payer BC, SELFPAY ==
--- OUTSIDE RECORDS SUMMARY | 2016-03-30 09:30 | XMS_ITS | Continuity of Care Document ---
Author Organization [facility] Address [address] [place] [address] Phone Care Team Providers Care Barrel Builder Name Role Phone Chau Mancilla MD Unavailable Unavailable Allergies, Adverse Reactions, Alerts Substance Reaction Status Criticality No Known Allergies Active No Inform ation Medications Medication Instructions Dosage Effective Dates (start - stop) Status Comments Mobic 15 mg tablet Take 1 tablet by mouth daily with food - Active LISINOPRIL (unknown strength) Not Available - Active Procedures Procedure Date OFFICE CONSULTATION Advance Directives Directive Yes / No Effective Date File Name No Information Encounters Encounter Description Practice Location Reason(s) For Visit Diagnoses Date Provider Providers Copied on Encounter OFFICE CONSULTATION [facility], [address], [place], [address], tel:[phone] [facility] [place] Acute pain of right shoulder 6 Laurent Ritchie. [address], [place], [place], [id number] . tel:[phone] Referring Provider: Madison Davalos [address], [place], [address] . tel:[phone] Family History Family Member Type Diagnosis Age At Onset Sister Problem (finding) Alive and well Payers Payer name Insurance type Covered libertarian ID Authoriza tion(s) No Information Social History Type Description Quantity Date Captured Comments Alcohol Use Details Unknown Caffeine Use Details Unknown Tobacco Use Status Smoking Status Former smoker Non-Smoking Tobacco Use Details : No Details Available : No Details Available Sex Female Vital Signs Date / Time: Height Weight BMI Pulse Rate Blood Pressure Temperature Respiratory Rate Body Surface Area Head Circumference Head Circ. Percentile Wt./Faheem. Percentile BMI percentile Pulse Ox Inhaled Ox 3:23 PM 64.00 in 129.274 kg (285.00 lbs) 48.9 2 kg/m eter (2) 128/69 mm[Hg] Chief Complaint And Reason For Visit No Information Reason For Referral Reason For Referral No Information Plan Of Treatment Date Type Action Status Referral Ordered: RADEX KYLE COMPL MINIMUM 2 VIEWS RT ordered History Of Present Illness Encounter Date Complaint History Of Prese nt Illness No Information Functional Status Date Functional Assessmen t No Information Instructions Date Instruction Additional Infor mation activity as tolerated Related to Acute pain of right shoulder apply heating pad or ice as tole rated Related to Acute pain of right shoulder Assessments Type Assessment Date assessment Acute pain of right shoulder Mar Patient Care Teams Name Effective Dates (start - stop) Status Members No Information
--- NOTE | ~2025-04-09 | MMUS_ITS ---
EXAMINATION: MM diagnostic enid BI w vee, US breast BI limited INDICATION: 49-year old female; Presents for evaluation of brownish nipple discharge,from both breasts. Family history of breast cancer in mother in her 40s. COMPARISON: 03/14/2018 through 05/29/2006 TECHNIQUE: Digital breast tomosynthesis True lateral and CC and MLO views of the BILATERAL breast were obtained with computer-aided detection to assist in interpretation of the study. MAMMOGRAM FINDINGS: The breasts are almost entirely fatty. There are no suspicious masses, calcifications, architectural distortion or any other abnormality in either breast. BILATERAL BREAST ULTRASOUND FINDINGS: Targeted evaluation of the subareolar region of Both breasts was completed. There are normal appearing ducts seen. No suspicious solid or cystic mass. IMPRESSION: No mammographic or sonographic evidence of breast malignancy. RECOMMENDATION: Clinical management of patient's nipple discharge is advised. Given patient's high-risk status, Bilateral breast MRI is recommended for further evaluation. BI-RADS 1, NEGATIVE Reviewed, dictated and finalized at location B. IMPRESSION: No mammographic or sonographic evidence of breast malignancy. RECOMMENDATION: Clinical management of patient's nipple discharge is advised. Given patient's high-risk status, Bilateral breast MRI is recommended for furth er evaluation. BI-RADS 1, NEGATIVE
--- OUTSIDE RECORDS SUMMARY | 2025-04-09 13:51 | XMS_ITS | Clinical Summary ---
Author Organization [facility] Address [address] [place] [address] Care Team Providers Care Inspector Fibrous Wallboard Name Role Phone Dilip Hayden MD Primary Care Provider +1- [phone] Allergies No known active allergies Medications FLUoxetine (PROzac) 20 mg capsuleIndicati ons:depression Take 1 capsule (20 mg total) by mouth funeral planning counselor before breakfast Active lisinopriL (PRINIVIL,ZESTR IL) 40 [...] on file Legal Sex Female 8:28 AM FLEXIBLE NANNY Gender Identity Female 12/08/2022 10:52 AM CDT [...] of 2) 10/02/2023 Covid-19 Vaccine (4 - 2024-2 6 season) 2025 07/24/2021, 10/24/2020, 10/03/2020 Influenza Vaccine (#1) 2025 07/24/2021 Pneumococcal vaccine <65 Aged Out No longer eligible based on patient's age to complete this topic Insurance * Guarantor: Freda Dove Account Type Relation to Patient Date of Phone Billing Address Personal/Family Self 1975 [phone] (Work) [address] [place] [address] [facility] [employer] [place] Care Teams Inspector Fibrous Wallboard Relationship Specialty Start Date End Date Dilip Hayden MD [address] [facility] [address] [place] [address] PCP - General 10/30/16
--- OUTSIDE RECORDS SUMMARY | 2025-04-09 13:51 | XMS_ITS | Clinical Summary ---
Author Organization [facility] Address [address] [facility] [place] [address] Care Team Providers Care Paper And Pulp Mill Worker Name Role Phone Unavailable Primary Care Provider Unavailabl e Source Comments [facility],non-owned Affiliates and Associated Physician Practices is amultiple site organization consisting of ambulatory clinics and hospital sitesin [place], [place] and [place]. This disclosure is being madepursuant to the Care Everywhere program and may not contain all information available regarding this patient. 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
--- OUTSIDE RECORDS SUMMARY | 2025-04-09 13:51 | XMS_ITS | Encounter Summary ---
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
== END 2025-04-09 13:47 | disposition home or self-care (01) ==
LOC: ANHFOHIMG 13:47
PROVIDERS: PCP Family Medicine; Visit Provider Nurse Practitioner Family
DX: N64.52 Nipple discharge (principal)
CPT/HCPCS: 76642; 77062; 77066; G0279